=== PATIENT | female | born 1995 | race Caucasian/White ===

== ENCOUNTER 2017-09-10 21:09 | Emergency (ER) | payer SELFPAY ==
[~2017-09-10] VITALS: Ht 167.6 cm; Wt 116.2 kg
[2017-09-10 21:16] VITALS: BP 138/69; PULSE 85; RESP 16; TEMP 97.8; O2SAT 99
--- NOTE | 2017-09-10 22:04 | PD ---
HPI Chief Complaint: Skin Problem Time Seen by Provider: 21:55 Travel History International Travel<30 days: No Contact w/Intl Traveler<30days: No Traveled to known affect area: No History of Present Illness HPI The patient was seen and examined in the presence of the nurse. This patient complains of rash. Location is left lower leg. She just noticed it today. It doesn't itch or bother her any way. Symptoms severity is mild. No fevers. She does have chronic swelling in her legs that she says is due to standing at work for long periods of time PFSH Past Medical History Medical History: Denies Significant Hx Diminished Hearing: No Immunizations Current: Yes Tetanus Vaccination: > 5 Years Influenza Vaccination: No ?: Unknown LMP: 08/08/17 Past Surgical History Surgical History: No Previous Surgery Social History Alcohol Use: No Tobacco Use: Yes Substance Use: No Allergies-Medications (Allergen,Severity, Reaction): Coded Allergies: No Known Allergies (Unverified , 09/10/17) Review of Systems General / Constitutional: No: Fever HENT: No: Headaches Cardiovascular: No: Chest Pain or Discomfort Physical Exam Narrative GASTROINTESTINAL: Abdomen soft, non-tender, nondistended. Positive bowel sounds. No hepato-splenomegaly, or palpable masses. No guarding. Psych: Normal mood and affect. Normal insight and judgment. NECK: Symmetrical appearance, midline trachea. No mass or crepitus. Thyroid without enlargement, tenderness, or mass. Skin: Patient has a very small patch of macular erythema at the inner aspect of the left lower leg. Data Data Last Documented VS Vital Signs Date Time Temp Pulse Resp B/P (MAP) Pulse Ox O2 Delivery O2 Flow Rate FiO2 09/10/17 21:16 97.8 85 16 138/69 (92) 99 Orders Orders Ed Urine Pregnancytest Poc (09/10/17 21:30) MDM Medical Decision Making Medical Screen Exam Complete: Yes Emergency Medical Condition: Yes Medical Record Reviewed: Yes Differential Diagnosis Eczema, dermatitis, cellulitis, allergic reaction, vasculitis Narrative Course I have reviewed the patient's electronic medical record. This patch is small and nonspecific and not really much to go on. She is asymptomatic. I'm recommending primary care or dermatology follow-up Advised to return if she gets clinically worse such as fever or joint pain etc. Diagnosis Primary Impression: Rash and nonspecific skin eruption Patient Instructions: General Instructions Departure Forms: Tests/Procedures Additional Instructions: The patient was advised to follow up with their physician and return if they worsen. Med/Other Pt SpecificInfo: Other Disposition: 01 DISCHARGE HOME Condition: Stable Dane Verma MD Sep 10, 2017 22:04
[2017-09-10 22:06] VITALS: BP 133/89
== END 2017-09-10 22:21 | disposition home or self-care (01) ==
LOC: PHED 21:09
DX: R21 Rash and other nonspecific skin eruption (principal); Z72.0 Tobacco use
CPT/HCPCS: 84703; 99282